=== PATIENT | female | born 1995 | race Two or more races ===

== ENCOUNTER 2019-12-02 22:46 | Inpatient (IN) | payer OTHER ==
[~2019-12-02] VITALS: Ht 5.1 cm; Wt 66.7 kg
== END 2019-12-04 10:18 | disposition home or self-care (01) | DRG 832 ==
LOC: OBS/DEL 22:46 → LDR 12-03 19:14 → OBS/DEL 12-03 19:14 → LDR 12-04 08:51
PROVIDERS: ADMIT Obstetrics & Gynecology; ATTEND Obstetrics & Gynecology
PROC: BY4CZZZ Ultrasonography of Second Trimester, Single Fetus (ICD-10-PCS; principal; 2019-12-03)
PROC: BT43ZZZ Ultrasonography of Bilateral Kidneys (ICD-10-PCS; 2019-12-03)
DX: O23.32 Infections of other parts of urinary tract in pregnancy, second trimester (principal); N13.6 Pyonephrosis; Z3A.22 22 weeks gestation of pregnancy; Z37.0 Single live birth; N20.0 Calculus of kidney; R31.9 Hematuria, unspecified

== ENCOUNTER → 2019-12-07 | Outpatient (CLI) | payer OTHER | END | disposition home or self-care (01) | LOC: SONOGRAMA 12:39 | PROVIDERS: ATTEND Obstetrics & Gynecology | DX: N20.0 Calculus of kidney (principal) ==

== ENCOUNTER 2019-12-14 12:45 | Outpatient (CLI) | payer OTHER | END 2019-12-14 12:58 | disposition home or self-care (01) | LOC: SONOGRAMA 12:45 | PROVIDERS: ATTEND Urology | DX: N20.1 Calculus of ureter (principal) ==

== ENCOUNTER 2020-03-10 11:51 | Outpatient (CLI) | payer OTHER | END 2020-03-10 17:02 | disposition home or self-care (01) | LOC: OBS/DEL 11:51 | PROVIDERS: ATTEND Obstetrics & Gynecology | DX: O60.03 Preterm labor without delivery, third trimester (principal) ==

== ENCOUNTER 2020-03-17 09:19 | Outpatient (CLI) | payer OTHER | END 2020-03-17 11:04 | disposition home or self-care (01) | LOC: NST 09:19 | PROVIDERS: ATTEND Obstetrics & Gynecology | DX: Z34.83 Encounter for supervision of other normal pregnancy, third trimester (principal) ==

== ENCOUNTER 2020-04-07 06:21 | Inpatient (IN) | payer OTHER ==
[~2020-04-07] VITALS: Ht 157.5 cm; Wt 74.4 kg
[2020-04-07] MEDS ORDERED: PRENATAL TABLE1 EAC1 PO (06:31)
== END 2020-04-09 11:14 | disposition home or self-care (01) | DRG 807 ==
LOC: LDR 06:21 → OB/GYN 06:21
PROVIDERS: ADMIT Obstetrics & Gynecology; ATTEND Obstetrics & Gynecology
PROC: 10E0XZZ Delivery of Products of Conception, External Approach (ICD-10-PCS; principal; 2020-04-07)
PROC: 0W8NXZZ Division of Female Perineum, External Approach (ICD-10-PCS; 2020-04-07)
PROC: 10907ZC Drainage of Amniotic Fluid, Therapeutic from Products of Conception, Via Natural or Artificial Opening (ICD-10-PCS; 2020-04-07)
PROC: 3E033VJ Introduction of Other Hormone into Peripheral Vein, Percutaneous Approach (ICD-10-PCS; 2020-04-07)
PROC: 3E0P7VZ Introduction of Hormone into Female Reproductive, Via Natural or Artificial Opening (ICD-10-PCS; 2020-04-07)
PROC: 4A1HXFZ Monitoring of Products of Conception, Cardiac Rhythm, External Approach (ICD-10-PCS; 2020-04-07)
DX: O48.0 Post-term pregnancy (principal); Z37.0 Single live birth; Z3A.40 40 weeks gestation of pregnancy; Z20.822 Contact with and (suspected) exposure to COVID-19